=== PATIENT | male | born 1965 | race Caucasian/White ===

== ENCOUNTER → 2016-05-22 | Outpatient (CLI) | payer MEDICAID | LOC: FIMAGING 07:42 | PROVIDERS: ATTEND Nurse Practitioner | DX: M79.606 Pain in leg, unspecified (principal); M79.89 Other specified soft tissue disorders ==

== ENCOUNTER 2016-08-21 08:43 | Emergency (ER) | payer MEDICAID ==
[2016-08-21 08:58] VITALS: BP 137/7; PULSE 69; RESP 16; TEMP 97.7; O2SAT 97
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
== END 2016-08-21 10:18 | disposition home or self-care (01) ==
DX: S63.641A Sprain of metacarpophalangeal joint of right thumb, initial encounter (principal); S63.501A Unspecified sprain of right wrist, initial encounter; S39.012A Strain of muscle, fascia and tendon of lower back, initial encounter; Z87.891 Personal history of nicotine dependence; V18.0XXA Pedal cycle driver injured in noncollision transport accident in nontraffic accident, initial encounter; Y92.410 Unspecified street and highway as the place of occurrence of the external cause; Y99.8 Other external cause status; Y93.55 Activity, bike riding
CPT/HCPCS: L3807

== ENCOUNTER → 2016-10-06 | Outpatient (CLI) | payer MEDICAID | LOC: FIMAGING 10:05 | PROVIDERS: ATTEND Physician Assistant | DX: S62.174A Nondisplaced fracture of trapezium [larger multangular], right wrist, initial encounter for closed fracture (principal) ==

== ENCOUNTER 2016-12-01 05:58 | Day surgery (SDC) | payer MEDICAID ==
[2016-12-01 06:23] VITALS: PULSE 62; RESP 16
[2016-12-01] MEDS ORDERED: LR 1,000 ML IV ONE (06:47)
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
--- NOTE | 2016-12-01 07:10 | PDGENHP ---
History & Physical Chief Complaint: Screening colonoscopy Relevant Physical Exam: GEN: NAD. Cardiac: RRR. Lungs: CTA B. Abd: Soft, nt, nd
[2016-12-01] MEDS ORDERED: LIDOCAINE 2% 5 ML SDV ONE (07:15)
[2016-12-01] MEDS ORDERED: PROPOFOL/EMULSION 500 MG/50 ML BOTTLE IV ONE (07:15)
[2016-12-01] MEDS ORDERED: LR 500 ML IV PRN (07:34)
[2016-12-01] MEDS ORDERED: ALBUTEROL 3 ML DEYVIAL IH PRN (07:34)
[2016-12-01] MEDS ORDERED: NALOXONE HCL 0.4 MG/ML INJ IVP PRN (07:34)
[2016-12-01] MEDS ORDERED: ACETAMINOPHEN 500 MG TAB PO PRN (07:34)
--- NOTE | 2016-12-01 07:48 | GIREPORT ---
[facility] - Endoscopy Department Patient Name: Say Norton Procedure Date: 12/01/2016 7:17 AM Patient Type: Outpatient Attending / CAM Physician: Pedro Ding MD Procedure: Colonoscopy Indications: Screening for colorectal malignant neoplasm Providers: Pedro Ding MD Medicines: Monitored Anesthesia Care Complications: No immediate complications. Description of Procedure: After obtaining informed consent, the scope was passed under direct vis ion. Throughout the procedure, the patient's blood pressure, pulse, and oxyg en saturations were monitored continuously. The Colonoscope with irrigatio n channel was introduced through the anus and advanced to the terminal il eum, with identification of the appendiceal orifice and IC valve. The colono scopy was performed without difficulty. The patient tolerated the procedure w ell. The quality of the bowel preparation was good. Findings: The perianal and digital rectal examinations were normal. The terminal ileum appeared normal. A few small-mouthed diverticula were found in the sigmoid colon and descending colon. The retroflexed view of the distal rectum and anal verge was normal and showed no anal or rectal abnormalities. Estimated Blood Loss: Estimated blood loss: none. Post Op Diagnosis: - The examined portion of the ileum was normal. - Diverticulosis in the sigmoid colon and in the descending colon. - The distal rectum and anal verge are normal on retroflexion view. - No specimens collected. Recommendation: - Discharge patient to home (with escort). - High fiber diet. - Continue present medications. - Repeat colonoscopy in 10 years for screening purposes. - Thank you for allowing me to participate in the care of your patient. Attending Participation: I personally performed the entire procedure. Pedro Ding MD Pedro Ding MD 12/01/2016 7:47:37 AM Number of Addenda: 0 Note Initiated On: 12/01/2016 7:17 AM Total Procedure Duration Time 0 hours 10 minutes 51 seconds [email or web address]
--- NOTE | 2016-12-01 08:20 | POSTANESTH ---
Post Anesthetic Evaluation Cardiovascular Status: Normal, Stable Respiratory Status: Normal, Stable Level of Consciousness/Mental Status: Can Participate in Eval, Alert and Oriented Pain Control: Adequate, Prn Tx Ordered Nausea/Vomiting Control: Adequate, Prn Tx Ordered Complications Possibly Related to Anesthesia: None Noted
[2016-12-01 08:44] VITALS: TEMP 97.9
[2016-12-01 09:50] VITALS: BP 106/67; O2SAT 98
== END 2016-12-01 09:35 | disposition home or self-care (01) ==
LOC: FSGY 05:58
PROVIDERS: ATTEND Internal Medicine Gastroenterology
PROC: 0DJD8ZZ Inspection of Lower Intestinal Tract, Via Natural or Artificial Opening Endoscopic (ICD-10-PCS; principal; 2016-12-01 07:30)
DX: Z12.11 Encounter for screening for malignant neoplasm of colon (principal); K57.30 Diverticulosis of large intestine without perforation or abscess without bleeding; B20 Human immunodeficiency virus [HIV] disease; Z85.048 Personal history of other malignant neoplasm of rectum, rectosigmoid junction, and anus; Z87.891 Personal history of nicotine dependence; Z79.899 Other long term (current) drug therapy; Z88.2 Allergy status to sulfonamides
CPT/HCPCS: J2704

== ENCOUNTER 2017-05-11 08:22 | Emergency (ER) | payer MEDICAID ==
[2017-05-11 08:30] VITALS: TEMP 97.7
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
[2017-05-11] MEDS ORDERED: METOCLOPRAMIDE 10 MG/2 ML VIAL IVP ONE (08:52)
[2017-05-11] MEDS ORDERED: DEXAMETHASONE 10 MG/ML VIAL IVP ONE (08:52)
[2017-05-11] MEDS ORDERED: KETOROLAC 30 MG/1 ML SDV IVP ONE (08:52)
[2017-05-11] MEDS ORDERED: NS 1,000 ML IV ONE (08:53)
[2017-05-11] MEDS ORDERED: ENOXAPARIN 80 MG/0.8 ML SYR SC ONE (10:18)
[2017-05-11 10:46] LABS: PLATELET COUNT 215 10^3/uL (150-400)
--- NOTE | 2017-05-11 10:54 | ASMTCMCOM ---
CM Note CM Note Notes: Prescription for Lovenox 80 mg BID X 7D, # [address] [facility] , Cecelia [facility] confirms that patient will not have a co pay for this prescription Date Signed: 05/11/2017 10:53 AM Electronically Signed By:Cherie Roy RN
[2017-05-11 11:06] VITALS: BP 147/85; PULSE 73; RESP 18; O2SAT 96
== END 2017-05-11 11:04 | disposition home or self-care (01) ==
DX: I82.492 Acute embolism and thrombosis of other specified deep vein of left lower extremity (principal); B20 Human immunodeficiency virus [HIV] disease; E86.9 Volume depletion, unspecified; Z87.891 Personal history of nicotine dependence
CPT/HCPCS: 96374; J1100; J1200; J1650; J1885; J2765

== ENCOUNTER 2017-06-03 11:17 | Emergency (ER) | payer MEDICAID ==
[2017-06-03] MEDS ORDERED: NS 1,000 ML IV ONE ×3 (11:36→13:24)
[2017-06-03] MEDS ORDERED: fentaNYL 100 MCG/2 ML INJ IVP ONE (11:50)
[2017-06-03] MEDS ORDERED: METOCLOPRAMIDE 10 MG/2 ML VIAL IVP ONE (11:50)
--- NOTE | 2017-06-03 11:51 | EDPHY ---
HPI/HX/ROS/PE/MDM Narrative: CHIEF COMPLAINT: Migraine HPI: The patient is a 52 y/o male complaining of persistent migraine for the last 24 hours. He has a history of migraines and recently was diagnosed with a leg DVT for which he is currently using Lovenox injections. His migraine today is localized behind his eyes, mainly on the right side, and associated with photophobia, nausea, and some blurred vision. This feels similar to prior migraines, but he has only had symptoms this severe 2-3 times previously. He normally uses Zomig for migraines, but did not have any available at home. He denies recent illness. He does report bumping his head on a cabinet yesterday. No weakness, paresthesias, fever. REVIEW OF SYSTEMS: Aside from elements discussed in the HPI, a comprehensive 10-point review of systems was reviewed and is negative. PMH: Migraines, HIV, DVT left lower extremity diagnosed 3 weeks ago and currently on Lovenox. SOCIAL HISTORY: Former smoker. Bicyclist. PHYSICAL EXAM: General:Patient is alert, in no acute distress. Lying in a dark room with sunglasses on. ENT:Eyes are normal to inspection. ENT inspection normal. Neck: Normal inspection. Full range of motion. Respiratory:No respiratory distress. Breath sounds normal bilaterally. Cardiovascular: Regular rate and rhythm. Strong peripheral pulses. Normal cap refill. Abdomen:The abdomen is nontender to palpation. There are no peritoneal signs. Back: Normal to inspection. No tenderness to palpation. Skin: Normal color. No rash. Warm and dry. Extremities: Normal appearance. Full range of motion. Neuro: Oriented x3. Normal motor function. Normal sensory function. ED Course: This is an anticoagulated 52 y/o male with a history of migraines who presents with a 24-hour history of persistent migraine. Symptoms feel similar to prior migraines, but more intense than most headaches. His neuro exam is unremarkable. Though presentation likely indicates migraine, due to his anticoagulation status and worse than normal symptoms, I've recommended a head CT to evaluate for acute bleed addition to symptom management. IV established. 25mg IV Benadryl, 50mcg IV Fentanyl, 10mg IV Reglan, and 2L IV NS ordered. Head CT: negative On re-eval at 1415, patient feels much better and headache is almost entirely resolved. He would like to go home. We discussed strict return precautions. MDM: This patient presents with acute episode of chronic migraine. His presentation is complicated by recent initiation of lovenox therapy for a DVT as well as chronic HIV positive status. CTH is negative for signs of bleed. The patient states his HIV is well-controlled and he is afebrile with no other symptoms, so I think infectious etiology is unlikely. He was treated with standard migraine cocktail and reports almost total resolution of his symptoms. I offered him further workup here in the ED but he would like to go home. We discussed strict return precautions. - Data Points Imaging Results: Imaging Impressions Head CT 06/03/17 12:05 Impression: Normal brain. No intracranial hemorrhage, mass or sinus disease. Findings discussed with Emergency Department physician, Dr. Howie Baca on June 03, 2017 at 1257 hours. Imaging: I viewed and interpreted images myself Medications Given: Discontinued Medications Diphenhydramine HCl (Benadryl Injection) 25 mg IVP EDNOW ONE Stop: 06/03/17 11:51 Last Admin: 06/03/17 12:03 Dose: 25 mg Fentanyl (Sublimaze) 50 mcg IVP EDNOW ONE Stop: 06/03/17 11:51 Last Admin: 06/03/17 12:03 Dose: 50 mcg Sodium Chloride (Ns) 1,000 mls @ 0 mls/hr IV ONCE ONE PRN Reason: Wide Open Stop: 06/03/17 11:37 Last Admin: 06/03/17 11:37 Dose: 1,000 mls Sodium Chloride (Ns) 1,000 mls @ 0 mls/hr IV ONCE ONE; Wide Open PRN Reason: Protocol Stop: 06/03/17 11:51 Last Admin: 06/03/17 12:04 Dose: 1,000 mls Sodium Chloride (Ns) 1,000 mls @ 0 mls/hr IV EDNOW ONE; Wide Open PRN Reason: Protocol Stop: 06/03/17 13:25 Last Admin: 06/03/17 13:58 Dose: 1,000 mls Metoclopramide HCl (Reglan Injection) 10 mg IVP EDNOW ONE Stop: 06/03/17 11:51 Last Admin: 06/03/17 12:03 Dose: 10 mg General Time Seen by Provider: 06/03/17 11:40 Initial Vital Signs: Initial Vital Signs Temperature (C) 36.3 C 06/03/17 11:22 Heart Rate 79 06/03/17 11:22 Respiratory Rate 16 06/03/17 11:22 Blood Pressure 127/76 H 06/03/17 11:22 O2 Sat (%) 99 06/03/17 11:22 O2 Delivery Mode Room Air O2 (L/minute) 2 Allergies/Adverse Reactions: Sulfa (Sulfonamide Antibiotics) Allergy (Mild, Verified 05/11/17 08:24) GI Home Medications: Medication Instructions Recorded Genvoya Tablet DAILY 11/24/16 Zomig PRN 11/24/16 Enoxaparin [Lovenox 80 MG (*)] 80 mg SQ Q12H #14 syr 05/11/17 Departure - Departure Disposition: Home, Routine, Self-Care Clinical Impression: Migraine Condition: Good Instructions: Migraine Headache (ED) Additional Instructions: Follow up with neurologist in the next week to discuss migraine management. Return to the ED for any worsening of condition. Referrals: Cecelia Campa MD [Primary Care Provider] - As per Instructions Armaan Miner DO [Doctor of Osteopathy] - As per Instructions Report Scribed for: Howie Baca Report Scribed by: Mary Shoemaker Date of Report: 06/03/17 Time of Report: 11:42 Physician Review and Approval Statement: Portions of this note were transcribed by an ED scribe. I personally performed the history, physical exam, and medical decision making; and confirm the accuracy of the information in the transcribed note.
[2017-06-03 14:48] VITALS: BP 130/83; PULSE 73; RESP 18; TEMP 98.2; O2SAT 98
== END 2017-06-03 14:48 | disposition home or self-care (01) ==
DX: G43.909 Migraine, unspecified, not intractable, without status migrainosus (principal); B20 Human immunodeficiency virus [HIV] disease; E86.9 Volume depletion, unspecified; Z87.891 Personal history of nicotine dependence
CPT/HCPCS: 96374; J1200; J2765; J3010

== ENCOUNTER 2017-07-07 15:43 | Emergency (ER) | payer MEDICAID ==
--- NOTE | 2017-07-07 16:06 | EDPHY ---
H & P Smoking Status: Former smoker Time Seen by Provider: 07/07/17 15:59 HPI/ROS: CHIEF COMPLAINT: Migraine HISTORY OF PRESENT ILLNESS: 52-year-old male history of chronic migraine, history of HIV with nondetectable viral load, arrives via private vehicle complaining of his usual right-sided migraine headache which he woke with proximally 0400 a.m., became progressively worse there after. Unrelieved with 2 doses of Imitrex. Feels same as his usual migraines. Positive nausea. No positive photophobia nausea phobia. No vomiting. No gait instability. No slurred speech. No head or neck trauma. REVIEW OF SYSTEMS: A ten point review of systems was performed and is negative with the exception of the items mentioned in the HPI PAST MEDICAL & SURGICAL HISTORY: HIV positive, undetectable viral load. History of DVT, currently on Lovenox injections. History of migraines. SOCIAL HISTORY: Former smoker. PHYSICAL EXAM (Prior to examination, patient consented to physical exam, hands were washed and my usual and customary physical exam procedures followed) 1) GENERAL: Well-developed, well-nourished, alert and oriented. Averse to light , appears uncomfortable. 2) HEAD: Normocephalic, atraumatic 3) HEENT: Pupils equal, round, reactive to light bilaterally. Sclera anicteric. 4) NECK: Full range of motion, no meningeal signs. 5) LUNGS: Clear auscultation bilaterally, no wheezes, no rhonchi, no retractions. 6) HEART: Regular rate and rhythm, no murmur, no heave, no gallop. 7) ABDOMEN: No guarding, no rebound, no focal tenderness, negative McBurney's, negative Egan's, negative Rovsing's, negative peritoneal sign, 8) MUSCULOSKELETAL: Moving all extremities, no focal areas of tenderness, no obvious trauma. No peripheral edema or discoloration. 9) BACK: No CVA tenderness, no midline vertebral tenderness, no fluctuance, no step-off, no obvious trauma, no visual or palpable abnormality. 10) SKIN: No rash, no petechiae. 11) NEURO: Awake, alert, and oriented to person, place and time. Answers questions appropriately. There were no obvious focal neurologic abnormalities. No cerebellar dysfunction. Cranial nerves 2 through to 12 intact. Normal steady gait. Upper and lower extremities bilaterally with strength 5 / 5, reflexes 2+. DIFFERENTIAL DIAGNOSIS: In no particular order, including but not limited to subarachnoid hemorrhage, migraine headache, tension headache and infectious causes such as meningitis, pharyngitis and sinusitis. (Germán Renee) Constitutional: Initial Vital Signs Temperature (C) 36.8 C 07/07/17 15:57 Heart Rate 61 07/07/17 15:57 Respiratory Rate 16 07/07/17 15:57 Blood Pressure 135/69 H 07/07/17 15:57 O2 Sat (%) 99 07/07/17 15:57 O2 Delivery Mode Room Air Allergies/Adverse Reactions: Sulfa (Sulfonamide Antibiotics) Allergy (Mild, Verified 07/07/17 15:56) GI Home Medications: Medication Instructions Recorded Genvoya Tablet DAILY 11/24/16 Zomig PRN 11/24/16 Enoxaparin [Lovenox 80 MG (*)] 80 mg SQ Q12H #14 syr 05/11/17 MDM/Departure - MDM Medications Given: Discontinued Medications Acetaminophen (Tylenol) 1,000 mg PO EDNOW ONE Stop: 07/07/17 17:49 Last Admin: 07/07/17 17:50 Dose: 1,000 mg Diphenhydramine HCl (Benadryl Injection) 25 mg IVP EDNOW ONE Stop: 07/07/17 16:10 Last Admin: 07/07/17 16:20 Dose: 25 mg Haloperidol Lactate (Haldol Injection) 2.5 mg IVP EDNOW ONE Stop: 07/07/17 16:11 Last Admin: 07/07/17 16:20 Dose: 2.5 mg Sodium Chloride (Ns) 1,000 mls @ 0 mls/hr IV ONCE ONE PRN Reason: Wide Open Stop: 07/07/17 16:09 Last Admin: 07/07/17 16:19 Dose: 1,000 mls Metoclopramide HCl (Reglan Injection) 10 mg IVP EDNOW ONE Stop: 07/07/17 16:10 Last Admin: 07/07/17 16:20 Dose: 10 mg ED Course/Re-evaluation: 5:20 p.m. the patient's headache is resolved. He is eager to go home. He declines further observation or treatment. (Armaan Pack) 4:06 p.m.: I reviewed the patient's old medical records including his emergency department visit dated 06/03/2017 for same complaint which point he had CT imaging of the brain. He has a nonfocal exam. At this time will hold on imaging studies. Doubt infectious etiology for headache. Will administer medications for migraine. 5:00 p.m.: Care turned over to Dr. Armaan Pack. Awaiting patient's response to medication. (Germán Renee) - Depart Disposition: Home, Routine, Self-Care Clinical Impression: Migraine Qualifiers: Migraine type: unspecified Status migrainosus presence: without status migrainosus Intractability: not intractable Qualified Code(s): G43.909 - Migraine, unspecified, not intractable, without status migrainosus Condition: Good Instructions: Migraine Headache (ED) Additional Instructions: RETURN TO THE ED IMMEDIATELY IF YOUR HEADACHE WORSENS, IF YOU DEVELOP A FEVER, NECK PAIN OR NECK STIFFNESS, OR IF YOU BECOME CONFUSED OR ABNORMALLY DROWSY. Referrals: Cecelia Campa MD [Primary Care Provider] - 1-2 days without fail
[2017-07-07] MEDS ORDERED: NS 1,000 ML IV ONE (16:08)
[2017-07-07] MEDS ORDERED: METOCLOPRAMIDE 10 MG/2 ML VIAL IVP ONE (16:09)
[2017-07-07] MEDS ORDERED: HALOPERIDOL LACT 5 MG/ML INJ IVP ONE (16:10)
[2017-07-07] MEDS ORDERED: ACETAMINOPHEN 500 MG TAB ONE (17:46)
[2017-07-07] MEDS ORDERED: ACETAMINOPHEN 500 MG TAB PO ONE (17:48)
[2017-07-07 17:55] VITALS: BP 143/88
== END 2017-07-07 17:55 | disposition home or self-care (01) ==
DX: G43.909 Migraine, unspecified, not intractable, without status migrainosus (principal); B20 Human immunodeficiency virus [HIV] disease; Z87.891 Personal history of nicotine dependence
CPT/HCPCS: 96374; J1200; J1630; J2765

== ENCOUNTER → 2017-09-03 | Outpatient (CLI) | payer MEDICAID ==
[~2017-09-03] MED LIST: LIDOCAINE 1% 300 MG/30 ML SDV ONE
== END ==
LOC: FIMAGING 13:02
PROVIDERS: ATTEND Internal Medicine Hematology & Oncology
DX: Z09 Encounter for follow-up examination after completed treatment for conditions other than malignant neoplasm (principal); Z86.718 Personal history of other venous thrombosis and embolism

== ENCOUNTER 2017-11-16 11:37 | Emergency (ER) | payer MEDICAID ==
[2017-11-16] MEDS ORDERED: NS 1,000 ML IV ONE ×2 (12:02→12:43)
[2017-11-16 12:36] LABS: PLATELET COUNT 263 10^3/uL (150-400)
[2017-11-16] MEDS ORDERED: DEXAMETHASONE 10 MG/ML VIAL IVP ONE (12:43)
[2017-11-16] MEDS ORDERED: KETOROLAC 30 MG/1 ML SDV IVP ONE (12:43)
--- NOTE | 2017-11-16 12:55 | EDPHY ---
H & P Time Seen by Provider: 11/16/17 12:01 HPI/ROS: HPI Cough, sore throat, headache, muscle aches. 52-year-old male by private vehicle. This patient reports that over the last 2 days he has had a dry nonproductive cough and has developed myalgias and arthralgias, has had intermittent chills and sweats but denies fever, he also reports having a sore throat and reports having a gradual onset migraine headache which she states is typical of his previous migraine headaches. Recent flight domestic lately. Denies ill contacts. States also that he was in the kitchen eating lunch. He was standing. He went to urinate and while urinating started feeling very lightheaded he went to the couch. He did not lose consciousness but felt very lightheaded. He had no associated sudden- onset thunderclap maximum intensity headache, no palpitations, no shortness of breath and no chest pain. He laid down for a little while felt better but still felt very achy and decided to come to the emergency department to be evaluated. ROS: Constitutional: No fever, as above. Eyes: No discharge. No changes in vision. ENT: As above. No nasal congestion or rhinorrhea. Respiratory: As above. No shortness of breath. Cardiac: No chest pain, no palpitations. Gastrointestinal: No abdominal pain, no vomiting, no diarrhea. Genitourinary: No hematuria. No dysuria or increased frequency with urination. Musculoskeletal: No back pain. No neck pain. No myalgias or arthralgias. Skin: No rashes. Neurological: As above. No focal weakness or altered sensation. Past medical history: Migraine headaches, HIV positive, on anti retroviral therapy. Social history: Nonsmoker. No alcohol. Here by himself. Physical Exam: General Appearance: Alert, no distress. This patient is responding to questions appropriately and in full sentences. This patient appears well- hydrated and well-nourished. Eyes: Pupils equal and round no pallor or injection. No lid edema, erythema or injection. No photophobia. No nystagmus. ENT, Mouth: Mucous membranes are moist. No thrush. The pharyngeal tissues are unremarkable. No edema or swelling. No asymmetry suggestive of abscess. No exudates. Mild and diffuse pharyngeal erythema. Respiratory: There are no retractions, lungs are clear to auscultation with good air movement bilaterally. Cardiovascular: Regular rate and rhythm. No murmur. Gastrointestinal: Abdomen is soft and nontender, no masses, bowel sounds normal. No focal tenderness at McBurney's point. No Egan sign. Neurological: Motor sensory function is grossly intact. Cranial nerves are normal. Gait is normal. Skin: Warm and dry, no rashes. Musculoskeletal: Neck is supple and nontender. No cervical, submental, submandibular lymphadenopathy. No pain on flexion of his neck. Extremities are symmetrical. All joints range without pain or impingement. Psychiatric: No agitation. No depression. Database: EKG: EKG time is 1:11 p.m.; EKG shows a narrow complex normal sinus rhythm with a ventricular rate of 57. The CO, QRS, QT intervals are within normal limits. There are no ST-T wave changes indicative of ischemic or injury pattern. No evidence of right heart strain. Interpreted by me. Imaging: Chest x-ray PA and lateral; cardiac mediastinal silhouette is unremarkable. No evidence of infiltrate. No pneumothorax. No acute cardiopulmonary disease process noted. Interpreted by me. Procedures: Emergency department course: Triage vital signs reviewed and are normal. An IV was placed. He was started on IV normal saline with 1-2 L to be given over the next 1-2 hours. He has no contraindications to NSAIDs. He will be given 30 mg of IV Toradol and 10 mg of IV Decadron for his headache, arthralgias and myalgias. EKG obtained and reviewed by myself. 2:30 p.m., the patient was re-evaluated. Resting comfortably at this time. He reports resolution of his headache. Repeat neurologic Assessment is nonfocal. He reports feeling much better after above medications and IV fluids. I discussed the results of his emergency department workup. All been reassuring. I do not feel he requires antibiotics at this time. I discussed observation admission secondary to his near syncopal episode. He does not want to do this. His presentation is more consistent with a vasovagal event. He is requesting discharge and I feel he is safe to go home. He can easily return to the emergency department if needed. I have advised him on supportive care including hydration, rest and then follow up with his primary care physician in the next 1-2 days. He is in agreement. All of his questions were answered. Return to emergency department precautions reviewed. He was discharged in good condition. Differential Diagnosis: The differential diagnosis on this patient includes but is not limited to viral syndrome, dehydration. Pneumonia, urinary tract infection, streptococcal pharyngitis, serious bacterial infection, subarachnoid hemorrhage, pulmonary embolism, arrhythmia unlikely. This represents a partial list of diagnoses considered. These considerations are based on history, physical exam, past history, reassessment and diagnostic testing. Smoking Status: Former smoker Constitutional: Initial Vital Signs Temperature (C) 37 C 11/16/17 11:40 Heart Rate 78 11/16/17 11:40 Respiratory Rate 16 11/16/17 11:40 Blood Pressure 105/74 11/16/17 11:40 O2 Sat (%) 96 11/16/17 11:40 O2 Delivery Mode Room Air Allergies/Adverse Reactions: Sulfa (Sulfonamide Antibiotics) Allergy (Mild, Verified 11/16/17 11:38) GI Home Medications: Medication Instructions Recorded Genvoya Tablet DAILY 11/24/16 Zomig PRN 11/24/16 Amovig 11/16/17 Gabapentin 11/16/17 Medical Decision Making - Diagnostics Imaging Results: Imaging Impressions Chest X-Ray 11/16/17 12:44 Impression: Normal chest x-ray. - Data Points Laboratory Results: Laboratory Results 11/16/17 12:00 11/16/17 12:00 11/16/17 11/16/17 11/16/17 Unknown 12:50 12:00 WBC RBC Hgb Hct MCV MCH MCHC RDW Plt Count MPV Neut % (Auto) Lymph % (Auto) [place] % (Auto) Eos % (Auto) Baso % (Auto) Nucleat RBC Rel Count Absolute Neuts (auto) Absolute Lymphs (auto) Absolute Monos (auto) Absolute Eos (auto) Absolute Basos (auto) Absolute Nucleated RBC Immature Gran % Immature Gran # Sodium Potassium Chloride Carbon Dioxide Anion Gap BUN Creatinine Estimated GFR Glucose Calcium Urine Color YELLOW Urine Appearance CLEAR Urine pH 7.0 (5.0-7.5) Ur Specific [place] 1.027 (1.002-1.030) Urine Protein NEGATIVE (NEGATIVE) Urine Ketones NEGATIVE (NEGATIVE) Urine Blood NEGATIVE (NEGATIVE) Urine Nitrate NEGATIVE (NEGATIVE) Urine Bilirubin NEGATIVE (NEGATIVE) Urine Urobilinogen 2.0 EU H EU (0.2-1.0) Ur Leukocyte Esterase NEGATIVE (NEGATIVE) Urine RBC 1-3 /hpf /hpf (0-3) Urine WBC 1-3 /hpf /hpf (0-3) Ur Epithelial Cells NONE SEEN /lpf /lpf (NONE-1+) Urine Mucus TRACE /lpf /lpf (NONE-1+) Urine Glucose NEGATIVE (NEGATIVE) Group A Strep Screen NEGATIVE (NEGATIVE) Group A Strep DNA Pending 11/16/17 11/16/17 12:00 12:00 WBC 7.02 10^3/uL 10^3/uL (3.80-9.50) RBC 5.14 10^6/uL 10^6/uL (4.40-6.38) Hgb 15.9 g/dL g/dL (13.7-17.5) Hct 46.7 % % (40.0-51.0) MCV 90.9 fL fL (81.5-99.8) MCH 30.9 pg pg (27.9-34.1) MCHC 34.0 g/dL g/dL (32.4-36.7) RDW 12.7 % % (11.5-15.2) Plt Count 263 10^3/uL 10^3/uL (150-400) MPV 11.2 fL fL (8.7-11.7) Neut % (Auto) 71.1 % % (39.3-74.2) Lymph % (Auto) 16.5 % % (15.0-45.0) [place] % (Auto) 10.1 % % (4.5-13.0) Eos % (Auto) 1.0 % % (0.6-7.6) Baso % (Auto) 1.0 % % (0.3-1.7) Nucleat RBC Rel Count 0.0 % % (0.0-0.2) Absolute Neuts (auto) 4.99 10^3/uL 10^3/uL (1.70-6.50) Absolute Lymphs (auto) 1.16 10^3/uL 10^3/uL (1.00-3.00) Absolute Monos (auto) 0.71 10^3/uL 10^3/uL (0.30-0.80) Absolute Eos (auto) 0.07 10^3/uL 10^3/uL (0.03-0.40) Absolute Basos (auto) 0.07 10^3/uL 10^3/uL (0.02-0.10) Absolute Nucleated RBC 0.00 10^3/uL 10^3/uL (0-0.01) Immature Gran % 0.3 % % (0.0-1.1) Immature Gran # 0.02 10^3/uL 10^3/uL (0.00-0.10) Sodium 138 mEq/L mEq/L (135-145) Potassium 4.2 mEq/L mEq/L (3.3-5.0) Chloride 103 mEq/L mEq/L (97-110) Carbon Dioxide 26 mEq/l mEq/l (22-31) Anion Gap 9 mEq/L mEq/L (8-16) BUN 12 mg/dL mg/dL (7-23) Creatinine 0.8 mg/dL mg/dL (0.7-1.3) Estimated GFR > 60 Glucose 99 mg/dL mg/dL (70-100) Calcium 9.5 mg/dL mg/dL (8.5-10.4) Urine Color Urine Appearance Urine pH Ur Specific [place] Urine Protein Urine Ketones Urine Blood Urine Nitrate Urine Bilirubin Urine Urobilinogen Ur Leukocyte Esterase Urine RBC Urine WBC Ur Epithelial Cells Urine Mucus Urine Glucose Group A Strep Screen Group A Strep DNA Medications Given: Discontinued Medications Dexamethasone (Decadron Injection) 10 mg IVP EDNOW ONE Stop: 11/16/17 12:44 Last Admin: 11/16/17 13:09 Dose: 10 mg Sodium Chloride (Ns) 1,000 mls @ 0 mls/hr IV ONCE ONE; Wide Open PRN Reason: Protocol Stop: 11/16/17 12:03 Last Admin: 11/16/17 12:19 Dose: 1,000 mls Sodium Chloride (Ns) 1,000 mls @ 0 mls/hr IV ONCE ONE; Wide Open PRN Reason: Protocol Stop: 11/16/17 12:44 Last Admin: 11/16/17 13:08 Dose: 1,000 mls Ketorolac Tromethamine (Toradol) 30 mg IVP EDNOW ONE Stop: 11/16/17 12:44 Last Admin: 11/16/17 13:09 Dose: 30 mg Departure - Departure Disposition: Home, Routine, Self-Care Clinical Impression: Viral syndrome, Headache, Dehydration, Near syncope Condition: Good Instructions: Near Syncope (ED), Viral Syndrome (ED) Additional Instructions: Read and follow provided instructions. Follow-up with your primary care physician in 1-2 days for re-evaluation. Take your medication as prescribed. Keep well hydrated. Return to the emergency department for worsening symptoms, lightheadedness, worsening headache, chest pain, palpitations, high fever, vomiting or other serious concerns. Referrals: Cecelia Campa MD [Primary Care Provider] - As per Instructions
[2017-11-16 15:05] VITALS: BP 125/76
--- NOTE | 2017-11-16 15:13 | CPEKG ---
Test Reason : OPEN Blood Pressure : / mmHG Vent. Rate : 057 BPM Atrial Rate : 057 BPM P-R Int : 113 ms QRS Dur : 099 ms QT Int : 426 ms P-R-T Axes : -23 -29 036 degrees QTc Int : 415 ms Sinus rhythm S1,S2,S3 pattern Confirmed by Alyssa Miner ([id number]) on 11/16/2017 3:12:36 PM Referred By: Confirmed By:Alyssa Miner
== END 2017-11-16 15:05 | disposition home or self-care (01) ==
DX: R05 Cough (principal); R55 Syncope and collapse; Z87.891 Personal history of nicotine dependence; E86.9 Volume depletion, unspecified
CPT/HCPCS: 96374; J1100; J1885